=== PATIENT | female | born 1955 | race Caucasian/White ===

== ENCOUNTER 2017-03-02 14:34 | Emergency (ER) | payer MEDICARE, OTHER ==
[~2017-03-02] VITALS: Ht 167.6 cm; Wt 154.2 kg
[2017-03-02] MEDS ORDERED: NORCO 5-325 TA1 EACH PO (15:01)
[2017-03-02] MEDS ORDERED: ASPIRIN EC81 MG PO (15:02)
[2017-03-02] MEDS ORDERED: BUPROPION HCL150 M2 PO (15:02)
[2017-03-02] MEDS ORDERED: KEFLEX500 MG PO (15:02)
[2017-03-02] MEDS ORDERED: COLACE CLEAR50 MG PO (15:03)
[2017-03-02] MEDS ORDERED: ESCITALOPRAM OX10 MG PO (15:03)
[2017-03-02] MEDS ORDERED: FEOSOL325 MG PO (15:04)
[2017-03-02] MEDS ORDERED: FUROSEMIDE40 MG PO (15:04)
[2017-03-02] MEDS ORDERED: FOLIC ACID1 MG PO (15:04)
[2017-03-02] MEDS ORDERED: ISOSORBIDE MONO30 MG PO (15:05)
[2017-03-02] MEDS ORDERED: TIROSINT100 MCG PO (15:05)
[2017-03-02] MEDS ORDERED: LISINOPRIL30 MG PO (15:05)
[2017-03-02] MEDS ORDERED: PANTOPRAZOLE SO40 MG PO (15:06)
[2017-03-02] MEDS ORDERED: DITROPAN XL10 MG PO (15:06)
[2017-03-02] MEDS ORDERED: QUETIAPINE FUM200 MG PO (15:07)
[2017-03-02] MEDS ORDERED: VITAMIN D1000 UNIT PO (15:07)
[2017-03-02] MEDS ORDERED: SIMVASTATIN80 MG PO (15:07)
[2017-03-02] MEDS ORDERED: HUMALOG MI100 UNIT/6 SUB-Q (15:14)
[2017-03-02] MEDS ORDERED: NOVOLOG100 UNIT/2 SUB-Q (15:15)
[2017-03-02] MEDS ORDERED: BACTRIM DS TAB1 EACH PO (16:24)
== END 2017-03-02 17:00 | disposition home or self-care (01) ==
LOC: ED 14:34
DX: L03.115 Cellulitis of right lower limb (principal); E11.9 Type 2 diabetes mellitus without complications; I10 Essential (primary) hypertension; J45.909 Unspecified asthma, uncomplicated; E03.9 Hypothyroidism, unspecified; E78.00 Pure hypercholesterolemia, unspecified; Z96.612 Presence of left artificial shoulder joint; Z90.710 Acquired absence of both cervix and uterus; Z88.8 Allergy status to other drugs, medicaments and biological substances; Z79.899 Other long term (current) drug therapy; Z79.82 Long term (current) use of aspirin; Z79.4 Long term (current) use of insulin
CPT/HCPCS: 36415; 80053; 85025; 96372; 99283; J0696